=== PATIENT | male | born 1955 | race Caucasian/White ===

== ENCOUNTER 2025-01-27 16:12 | Emergency (ER) | payer OTHER, SELFPAY ==
[2025-01-27 16:18] VITALS: BP 116/71; PULSE 108; TEMP 37.3; O2SAT 95; BMI 27.3
--- NOTE | 2025-01-27 16:31 | CT_ITS ---
The [address] [address] Patient Name: DUONG OLIVEAR MRN: [id number] date: 1955 Sex: M Assigned Patient Location: ER Current Patient Location: [facility] Accession/Order Number: [id number] Exam Date: 01/27/2025 17:11 Report Date: 01/27/2025 17:28 At the request of: DIEGO KYLE MD Procedure: CT head/brain wo con CT head/brain wo con 01/27/2025 5:14 PM SIGNS AND SYMPTOMS: Headache, lightheadedness, chills TECHNIQUE:Multi-detector CT axial slices of the brain were obtained without IV contrast. CT was performed with one or more of the following dose reduction techniques: Automated exposure control, adjustment of the mA and/or kV according to patient size, or use of iterative reconstruction technique. COMPARISON: None. FINDINGS: There is no shift of the midline structures, acute intracranial bleeding, mass effects, or evidence of acute ischemia. Atherosclerotic changes are noted in the intracranial segments of the internal carotid arteries. There is periventricular white matter hypoattenuation. The ventricular system is normal in size. The brainstem and the cerebellum are unremarkable. The visualized intraorbital contents, the visualized paranasal sinuses, and the infratemporal soft tissues show no acute abnormality. The osseous structures in the skull base and the calvarium show no abnormality. CT/CT head/brain wo con IMPRESSION: No acute intracranial pathology. Chronic age-related neurodegenerative changes are noted as above. Impression dictated by: Brayden Vidal M.D. 01/27/2025 5:28 PM Dictation Location: [place] [address] Electronically authenticated by: [id number] Y Date: 01/27/2025 17:28
--- NOTE | 2025-01-27 16:32 | ED.GENADUL1 ---
HPI HPI - General Adult General Chief complaint: Headache Stated complaint: HEAD ACHE Time Seen by Provider: 01/27/25 16:22 Source: patient Mode of arrival: Wheelchair Limitations: no limitations History of Present Illness HPI narrative: 69-year-old male to the emergency department with multiple medical complaints. Patient reports that he has had nasal congestion, dry cough, malaise, body aches and headache for the last 4 days. He reports that headache is particularly bad and throbbing in nature. He reports he does not typically get headaches. He reports chills but no fever. Otherwise at his baseline health. He denies any major medical problems. No medications taken at home. Related Data Home Medications ?Medication ?Instructions ?Recorded ?Confirmed amlodipine 5 mg tablet 5 mg PO DAILY 01/27/25 01/27/25 isosorbide mononitrate 30 mg 30 mg PO DAILY 01/27/25 01/27/25 tablet,extended release 24 hr metoprolol tartrate 25 mg tablet 12.5 mg PO Q12H 01/27/25 01/27/25 oxaprozin 600 mg tablet 1,200 mg PO DAILY 01/27/25 01/27/25 Previous Rx's ?Medication ?Instructions ?Recorded ondansetron 4 mg disintegrating 4 mg PO Q8H PRN nausea and 01/27/25 tablet vomiting 4 days #16 tabs Allergies Allergy/AdvReac Type Severity Reaction Status Date / Time No Known Drug Allergies Allergy Verified 01/27/25 16:18 Opioid HPI Opioid Management Most Recent Opioid Data: Last Pain Scale 8 Today, 16:45 Last MAR Pain Assessment Today, 16:45 Review of Systems ROS Status of ROS 10 or more systems reviewed and unremarkable except as noted in history and below PFSH PFS Social History Little interest or pleasure in doing things: not at all Feeling down, depressed, or hopeless: not at all Exam Narrative Exam Narrative: VITALS: I have reviewed the triage vital signs. GENERAL: Well developed, well appearing adult in no acute distress. NEURO: Alert and oriented x4. Moves all extremities. Face is symmetric and expressive. Cranial nerves II through XII grossly intact as tested. Muscular strength and sensation grossly intact upper and lower extremities bilaterally. No dysarthria. No aphasia. No ataxia. Normal gait. NIHSS 0. EYES: PERRL. No scleral icterus or conjunctival injection. No discharge. HENT: Normocephalic, atraumatic. Hearing is grossly intact. Nasal congestion with clear discharge. Mucous membranes moist. NECK: No JVD. Patient moves neck without restriction. No meningismus. CARDIO: Rhythm regular. Normal rate. No murmur, rub, or gallop. Pulses equal bilaterally in the upper and lower extremity. No lower extremity edema. PULM: Lungs clear to auscultation in all gomez. No wheezes, rales, or rhonchi. No conversational dyspnea. No splinting, stridor, or accessory muscle use. GI/: Abdomen is soft and non-tender. Normoactive bowel sounds. EXTREMITIES: Symmetric muscle bulk. No joint swelling. No clubbing, cyanosis, or deformity. SKIN: Warm and dry. Normal turgor. No rash or lesions appreciated. PSYCH: Mood, affect, and interaction is appropriate to the setting. Constitutional Vital Signs, click to edit/add: Last Vital Signs Temp 99.1 F 01/27/25 16:18 Pulse 108 H 01/27/25 16:18 Resp 18 01/27/25 16:18 BP 116/71 01/27/25 16:18 Pulse Ox 95 01/27/25 16:18 O2 Del Method Room Air 01/27/25 16:18 Course Vital Signs Vital signs: Vital Signs Temperature 99.1 F 01/27/25 16:18 Pulse Rate 108 H 01/27/25 16:18 Respiratory Rate 18 01/27/25 16:18 Blood Pressure 116/71 01/27/25 16:18 Pulse Oximetry 95 01/27/25 16:18 Oxygen Delivery Method Room Air 01/27/25 16:18 Temperature 99.1 F 01/27/25 16:18 Pulse Rate 108 H 01/27/25 16:18 Respiratory Rate 18 01/27/25 16:18 Blood Pressure 116/71 01/27/25 16:18 Pulse Oximetry 95 01/27/25 16:18 Oxygen Delivery Method Room Air 01/27/25 16:18 Medical Decision Making MDM Narrative Medical decision making narrative: 69-year-old male to the emergency department chief complaint of headache and URI symptoms. Vital stable, the patient is afebrile. Neurologic examination is nonfocal. Reports no history of headaches, severe headache. Fluids, Tylenol, Zofran ordered for symptom control. Will obtain CT head and basic labs. Viral swabs. Patient agrees with this plan. CT head without acute findings. Lab work without significant abnormality today. Unknown baseline renal function, rare represent some mild renal insufficiency. Fluids were given. Findings were discussed with the patient. He feels much improved after medications. Will continue on Zofran at home. Recommended Tylenol and ibuprofen for headache and bodyaches. Suspect viral syndrome. Return precautions were discussed. All questions were answered. The patient was discharged home. Medical Records Medical records reviewed: Yes I reviewed the patient's medical records Lab Data Lab results reviewed: Yes I reviewed the patient's lab results Labs: Lab Results 01/27/25 01/27/25 Range/Units 16:40 16:41 WBC 13.3 H (4.0-11.0) 10^3/uL RBC 4.67 L (4.70-6.10) 10^6/uL Hgb 14.6 (14.0-18.0) g/dL Hct 43.5 (42.0-54.0) % MCV 93.1 (80.0-94.0) fL MCH 31.3 (25.9-34.0) pg MCHC 33.6 (29.9-35.2) g/dL RDW 12.7 (11.0-15.0) % Plt Count 210 (150-450) 10^3/uL MPV 9.5 (9.5-13.5) fL Neut % (Auto) 86.5 H (43.0-75.0) % Lymph % (Auto) 9.5 L (20.5-60.0) % [place] % (Auto) 3.2 (1.7-12.0) % Eos % (Auto) 0.0 L (0.9-7.0) % Baso % (Auto) 0.3 (0.2-2.0) % Neut # (Auto) 11.5 H (1.4-6.5) 10^3/uL Lymph # (Auto) 1.3 (1.2-3.8) 10^3/uL [place] # (Auto) 0.4 (0.3-0.8) 10^3/uL Eos # (Auto) 0.0 (0.0-0.7) 10^3/uL Baso # (Auto) 0.0 (0.0-0.1) 10^3/uL Abs Immat Gran (auto) 0.06 H (0.00-0.03) 10^3/uL Imm/Tot Granulo (auto) 0.5 (0.0-0.5) % Sodium 140 (136-145) mmol/L Potassium 4.1 (3.5-5.1) mmol/L Chloride 105 (98-107) mmol/L Carbon Dioxide 24.0 (21.0-32.0) mmol/L Anion Gap 15.1 BUN 11.0 (7.0-18.0) mg/dL Creatinine 1.42 H (0.70-1.30) mg/dL Est GFR ( Amer) 60 (>=60 mL/min/1.73m^2) Est GFR (Non-Af Amer) 49 L (>=60 mL/min/1.73m^2) BUN/Creatinine Ratio 7.7 Glucose 188 H (74-106) mg/dL Calcium 8.2 L (8.5-10.1) mg/dL Influenza Type A Ag Negative Influenza Type B Ag Negative SARS-CoV-2 Ag (CV2AG) Negative (NEGATIVE) Imaging Data CT scan - head: Attestation: I have reviewed the pertinent imaging results. Radiologist's impression: ITS Impressions Head CT 01/27/25 16:31 IMPRESSION: No acute intracranial pathology. Chronic age-related neurodegenerative changes are noted as above. Impression dictated by: Brayden Vidal M.D. 01/27/2025 5:28 PM Dictation Location: [place] [address] Electronically authenticated by: [id number] Y Date: 01/27/2025 17:28 Discharge Plan Discharge Chief Complaint: Headache Clinical Impression: Headache, Upper respiratory infection Patient Disposition: Home, Self-Care Time of Disposition Decision: 18:17 Condition: Good Mode of Transportation: Private Vehicle Prescriptions / Home Meds: New ondansetron 4 mg tablet,disintegrating 4 mg PO Q8H PRN (Reason: nausea and vomiting) 4 Days Qty: 16 0RF No Action amlodipine 5 mg tablet 5 mg PO DAILY isosorbide mononitrate 30 mg tablet extended release 24 hr 30 mg PO DAILY metoprolol tartrate 25 mg tablet 12.5 mg PO Q12H oxaprozin 600 mg tablet 1,200 mg PO DAILY Print Language: Finnish Instructions: Upper Respiratory Infection (ED), Acute Headache (DC) Additional Instructions: Call the office of your primary care doctor to arrange for follow-up within the above-stated timeframe. Your ED visit was focused on your acute issue and does not replace primary care. You should review your labs, imaging, and diagnoses from this ED visit with your primary care physician. There may be non-emergent/ incidental findings that need further evaluation. You should review your vital signs including blood pressure with your PCP. If you were prescribed medications you should discuss possible side-effects and drug interactions with your pharmacist. Call 911 or go to the nearest Emergency Department if you develop any new or worsening symptoms. Seek immediate medical attention if you develop: worsening headache, nausea, vomiting, confusion, weakness, loss of motion in your arms or legs, loss of control of your urine Referrals: MICHELE LUCAS NP [Primary Care Provider] - 1 week
[2025-01-27] MEDS: ACETAMINOPHEN 500 MG TABLET 1000 MG PO (16:45)
[2025-01-27] MEDS: 0.9 % SODIUM CHLORIDE 1,000 ML 1000 ML IV (16:45)
[2025-01-27 16:50] LABS: Hematocrit 43.5 % (42.0-54.0); Hemoglobin 14.6 g/dL (14.0-18.0); Immature Granulocytes Abs Auto 0.06 10^3/uL (0.00-0.03); Immature Granulocytes Pct Auto 0.5 % (0.0-0.5); Lymphocytes Absolute Auto 1.3 10^3/uL (1.2-3.8); Mean Corpuscular HGB Conc 33.6 g/dL (29.9-35.2); Mean Corpuscular Hemoglobin 31.3 pg (25.9-34.0); Mean Corpuscular Volume 93.1 fL (80.0-94.0); Platelet Count 210 10^3/uL (150-450); Red Blood Count 4.67 10^6/uL (4.70-6.10); White Blood Count 13.3 10^3/uL (4.0-11.0)
[2025-01-27 16:57] LABS: Anion Gap 15.1; Blood Urea Nitrogen 11.0 mg/dL (7.0-18.0); Calcium 8.2 mg/dL (8.5-10.1); Carbon Dioxide 24.0 mmol/L (21.0-32.0); Chloride 105 mmol/L (98-107); Estimated GFR (African America 60 (>=60 mL/min/1.73m^2); Estimated GFR (Non-African Ame 49 (>=60 mL/min/1.73m^2); Glucose 188 mg/dL (74-106); Potassium 4.1 mmol/L (3.5-5.1); Sodium 140 mmol/L (136-145)
[2025-01-27 17:01] LABS: SARS-CoV-2 Ag NEGATIVE (NEGATIVE)
[2025-01-27] MEDS: KETOROLAC TROMETHAMINE 30 MG/ML VIAL 15 MG IVP (17:56)
[2025-01-27 18:37] VITALS: BP 99/61; PULSE 78; O2SAT 95
== END 2025-01-27 18:38 | disposition home or self-care (01) ==
PROVIDERS: Emergency Provider Student in an Organized Health Care Education/Training Program
DX: R51.9 Headache, unspecified (principal); J06.9 Acute upper respiratory infection, unspecified
CPT/HCPCS: 36415; 70450; 80048; 85025; 87804; 87811; 96374; 96375; 99285; J1885; J2405